=== PATIENT | female | born 1955 | race Caucasian/White ===

== ENCOUNTER → 2017-09-12 | Outpatient (CLI) | payer BC ==
--- NOTE | 2017-09-12 14:56 | RADIOLOGY REPORT (SQ) ---
EXAM DESCRIPTION: CHEST PA/LAT COMPLETED DATE/TIME: 09/12/2017 2:06 pm REASON FOR STUDY: SOB (R06.02) COMPARISON: None. EXAM PARAMETERS: NUMBER OF VIEWS: two views TECHNIQUE: Digital Frontal and Lateral radiographic views of the chest acquired. RADIATION DOSE: NA LIMITATIONS: none FINDINGS: LUNGS AND PLEURA: No opacities, masses or pneumothorax. No pleural effusion. MEDIASTINUM AND HILAR STRUCTURES: No masses or contour abnormalities. HEART AND VASCULAR STRUCTURES: Heart normal size. No evidence for failure. BONES: No acute findings. HARDWARE: None in the chest. OTHER: No other significant finding. IMPRESSION: NO SIGNIFICANT RADIOGRAPHIC FINDING IN THE CHEST. TECHNICAL DOCUMENTATION: JOB ID: [id number] [employer]- All Rights Reserved
--- NOTE | 2017-09-12 19:29 | XCELERA REPORT ---
[address] [address] Transthoracic Echocardiogram Report Name: NGA RUDOLPH Age: 61 yrs Gender: Female : 1955 Patient Status: Outpatient Patient Location: Study Date: 09/12/2017 01:13 PM Height: 61 in Weight: 192 lb BSA: 1.9 m2 Procedure: A complete two-dimensional transthoracic echocardiogram was performed (2D, M-mode, spectral and color flow Doppler). The study was technically difficult with many images being suboptimal in quality. Reason For Study: SOB Ordering Physician: KATE VEE Performed By: Gina Bruner Interpretation Summary The left ventricular ejection fraction is normal. There is borderline concentric left ventricular hypertrophy. Doppler measurements suggest pseudonormalized left ventricular relaxation, which is associated with grade II/IV or mild to moderate diastolic dysfunction The left ventricle is grossly normal size. Wall motion cannot be accurately commented on, but no definite regional wall motion abnormalities noted. The right ventricular systolic function is normal. The right atrium is normal. The left atrial size is normal. There is a trace amount of mitral regurgitation There is no mitral valve stenosis. No aortic regurgitation is present. There is no aortic valve stenosis There is a trace or physiologic amount of tricuspid regurgitation Tricuspid regurgitation jet envelope not well defined to measure RV systolic pressure accurately. The aortic root is not well visualized but is probably normal size. The inferior vena cava was not well visualized There is no pericardial effusion. MMode/2D Measurements & Calculations RVDd: 2.3 cm LVIDd: 4.5 cm FS: 33.7 % Ao root diam: 3.0 cm IVSd: 0.94 cm LVIDs: 3.0 cm EDV(Teich): 93.7 ml LVPWd: 0.91 cmESV(Teich): 35.0 ml Ao root area: 7.3 cm2 EF(Teich): 62.6 % LA dimension: 2.8 cm LVOT diam: 1.9 cm LVOT area: 2.8 cm2 Doppler Measurements & Calculations MV E max ashwini: MV P1/2t max ashwini: Ao V2 max: LV V1 max P.7 cm/sec 41.0 cm/sec 117.3 cm/sec 3.1 mmHg MV A max ashwini: MV P1/2t: 88.7 msec Ao max PG: LV V1 max: 64.2 cm/sec MVA(P1/2t): 2.5 cm2 5.5 mmHg 87.5 cm/sec MV E/A: 0.63 MV dec slope: OJ(V,D): 2.1 cm2 135.5 cm/sec2 PA V2 max: TR max ashwini: 98.7 cm/sec 205.2 cm/sec PA max PG: TR max P.8 mmHg 3.9 mmHg Left Ventricle The left ventricle is grossly normal size. There is borderline concentric left ventricular hypertrophy. The left ventricular ejection fraction is normal. Doppler measurements suggest pseudonormalized left ventricular relaxation, which is associated with grade II/IV or mild to moderate diastolic dysfunction. Wall motion cannot be accurately commented on, but no definite regional wall motion abnormalities noted. Right Ventricle The right ventricle is grossly normal size. There is normal right ventricular wall thickness. The right ventricular systolic function is normal. Atria The right atrium is normal. The left atrial size is normal. Mitral Valve The mitral valve leaflets are sclerotic, but show no functional abnormalities. There is no mitral valve stenosis. There is a trace amount of mitral regurgitation. Aortic Valve The aortic valve is not well visualized secondary to technical limitations. There is no aortic valve stenosis. No aortic regurgitation is present. Tricuspid Valve The tricuspid valve is not well visualized secondary to technical limitations. There is no tricuspid stenosis. There is a trace or physiologic amount of tricuspid regurgitation. Tricuspid regurgitation jet envelope not well defined to measure RV systolic pressure accurately. Pulmonic Valve The pulmonic valve is not well visualized. Great Vessels The aortic root is not well visualized but is probably normal size. The inferior vena cava was not well visualized. Effusions There is no pericardial effusion. : KATE VEE Shyamal
--- NOTE | 2017-09-13 08:17 | XCELERA REPORT ---
[address] [address] Lower Extremity Venous Evaluation Name: NGA RUDOLPH Age: 61 yrs Gender: Female : 1955 Patient Status: Outpatient Patient Location: Study Date: 09/12/2017 01:34 PM Procedure: Color flow and duplex imaging bilaterally of the veins of the lower extremities as well as the Common Femoral veins. Reason For Study: SOB Ordering Physician: KATE VEE Performed By: Gina Bruner Right Sided Venous Evaluation Normal vessel filling wall to wall, compression and augmentation as well as Colour flow down to the infrageniculate veins. Left Sided Venous Evaluation Normal vessel filling wall to wall, compression and augmentation as well as Colour flow down to the infrageniculate veins. Interpretation Summary No duplex evidence of DVT or obstruction in the bilateral lower extremities. : KATE VEE [place]
== END ==
LOC: SP 12:34
PROVIDERS: ATTEND Internal Medicine
DX: R06.02 Shortness of breath (principal); R60.0 Localized edema
CPT/HCPCS: 71020; 93306; 93970

== ENCOUNTER → 2020-11-14 | Outpatient (CLI) | payer SELFPAY ==
[~2020-11-14] MED LIST: COVID-19 VACCINE (PFIZER)/PF 30 MCG/0.3 ML VIAL IM ONE; EPINEPHRINE INJ/PF 1 MG/1 ML AMPULE IM PRN
== END ==
LOC: EMPHEALTH 14:03
PROVIDERS: ATTEND Internal Medicine
DX: Z23 Encounter for immunization (principal)
CPT/HCPCS: 91300